=== PATIENT | female | born 1950 | race Caucasian/White ===

== ENCOUNTER 2020-10-02 05:19 | Inpatient (IN) | payer OTHER, SELFPAY ==
[~2020-10-02] VITALS: Ht 162.6 cm; Wt 81.2 kg
[2020-10-02 05:22] VITALS: Ht 162.6 cm; Wt 81.2 kg
--- NOTE | 2020-10-02 05:28 | NUR ---
PT SATTING AT 89% ON RA. PT PLACED ON 2L NC PT SATTING AT@94%.
--- NOTE | 2020-10-02 07:23 | NUR ---
BEDSIDE REPORT RECEIVED.
[2020-10-02 07:33] LABS: BASOPHIL % 0.4 % (0.2-1.3); PLATELET COUNT 215 x10^3mcL (179-408); RED CELL DISTRIBUTION WIDTH 13.4 % (12.3-17.7)
[2020-10-02 08:07] LABS: CALCIUM 8.3 mg/dL (8.5-10.1); CARBON DIOXIDE 24.1 mmol/L (21-32); CHLORIDE SERUM 98 mmol/L (98-107); CREATININE SERUM 0.6 mg/dL (0.6-1.0); GFR1 > 60 mL/min; GLUCOSE SERUM 156 mg/dL (74-106); POTASSIUM SERUM 4.2 mmol/L (3.5-5.1); SODIUM SERUM 133 mmol/L (136-145)
[2020-10-02 08:11] LABS: ALKALINE PHOSPHATASE 69 U/L (46-116); ALT/SGPT 49 U/L (14-59); AST/SGOT 40 U/L (15-37); BILIRUBIN TOTAL 0.85 mg/dL (0.20-1.00); LIPASE 218 IU/L (73-393); TOTAL PROTEIN, SERUM 7.9 g/dL (6.4-8.2); TRIGLYCERIDES 73 mg/dL (<150)
[2020-10-02 08:23] LABS: ALBUMIN 3.1 g/dL (3.4-5.0); CHOLESTEROL 69 mg/dL (<200); CHOLESTEROL/HDL RATIO 2.9; HDL CHOLESTEROL 24 mg/dL (40-60)
--- NOTE | 2020-10-02 08:42 | NUR ---
PATIENT AMBULATED TO THE BATHROOM, O2 SAT ON RETURN TO MONITOR IS 93 PERCENT ROOM AIR, WILL MONITOR O2 SAT WITH NO O2.
--- NOTE | 2020-10-02 09:09 | NUR ---
PATIENT IS COVID POSITIVE, MD IS AWARE.
--- NOTE | 2020-10-02 09:10 | NUR ---
PATIENT MAINTAINED O2 SATURATION BETWEEN 93 TO 94 PERCENT.
--- NOTE | 2020-10-02 09:23 | NUR ---
INFORMED PATIENT OF POSITIVE COVID TEST.
[2020-10-02 10:01] LABS: microscopic required? YES; urine erythrocyte 1+ (NEGATIVE)
--- NOTE | 2020-10-02 12:44 | NUR ---
1 GRAM TYLENOL GIVEN PO PER VO OF DR. ROCA AND GIVEN TREATMENT PROTOCOL ALSO FOR TEMP OF 100.6.
[2020-10-02 13:54] LABS: FREE T4 1.73 ng/dL (0.76-1.46)
[2020-10-02 14:00] LABS: FREE THYROXINE INDEX 4.5 ug/dL (1.4-4.5); T4(THYROXINE) 14.1 ug/dL (4.7-13.3)
--- NOTE | 2020-10-02 14:40 | NUR ---
PLACED ON 2L NC.SPO2 93%. NO ACUTE RESP DISTRESS NOTED.
--- NOTE | 2020-10-02 15:42 | NUR ---
PATIENT IS RESTING WITH EYES CLOSED, STILL TACHYPNEIC AND AT TIMES WITH SINUS TACHYCARDIA. O2 SATURATION IS 94 TO 95 PERCENT ROOM AIR.
--- NOTE | 2020-10-02 16:11 | NUR ---
PATIENT IS UP TO THE BATHROOM WITH NO GAIT ISSUES. PATIENT GETS SOB WITH WALKING BUT ABLE TO MAINTAIN O2 SATURATION IN THE 93 TO 95 RANGE.
--- NOTE | 2020-10-02 18:28 | NUR ---
MEAL TRAY GIVEN, PATIENT ATE A 100 PERCENT.
[2020-10-02 18:35] VITALS: BP 110/66
--- NOTE | 2020-10-02 19:12 | NUR ---
REPORT GIVEN TO SAVANNAH SANDHU
--- NOTE | 2020-10-02 19:17 | NUR ---
RECEIVED REPORT FROM EZEQUIEL NUÑEZ (AGENCY). PT NOTED AWAKE, A/O X4 AND VERBALLY RESPONSIVE. NO ACUTE DISTRESS NOTED. BREATHING EVEN AND UNLABORED. PT DENIES ANY PAIN OR DISCOMFORT AT THIS TIME. BED IN LOWEST POSTION. PT CONTINUES ON 3LPM O2 VIA NC, TOLERATING WELL WITH NO SOB. CONSUELORNOAM REMAINS IN LOWEST POSITION. NO APPARENT CHANGES AT THIS TIME.
[2020-10-02 20:22] LABS: T3 TOTAL 1.45 ng/mL
--- NOTE | 2020-10-02 20:30 | NUR ---
PT RESTING IN POSITION OF COMFORT ON GURNEY, NO ACUTE DISTRESS NOTED. BREATHING EVEN AND UNLABORED. PT DENIES PAIN OR DISCOMFORT. BEDSIDE COMMODE PROVIDED PER PT REQUEST. SAFETY MEASURES IN PLACE. GURNEY REMAINS IN LOWEST POSITION. NO APPARENT CHANGES NOTED AT THIS TIME.
--- NOTE | 2020-10-02 22:47 | NUR ---
PT RESTING IN POSITION OF COMFORT IN GURNEY, NO ACUTE DISTRESS NOTED. BREATHING EVEN AND UNLABORED. SAFETY MEASURES IN PLACE. GURNEY IN LOWEST POSITION. CALL LIGHT WITHIN REACH. NO APPARENT CHANGES AT THIS TIME.
--- NOTE | 2020-10-02 23:50 | NUR ---
PT RESTING IN GURNEY. NO ACUTE DISTRESS NOTED. BREATHING EVEN AND UNLABORED. SAFETY MEASURES IN PLACE. GURNEY IN LOWEST POSITION. NO APPARENT CHANGES NOED AT THIS TIME.
--- NOTE | 2020-10-03 01:00 | NUR ---
PT RESTING IN POSTIION OF COMFORT. NO ACUTE DISTRESS NOTED. BREATHING EVEN AND UNLABORED. SAFETY MEASURES IN PLACE. GURNEY IN LOWEST POSITION. NO APPARENT CHANGES NOTED AT THIS TIME.
--- NOTE | 2020-10-03 02:34 | NUR ---
PT IN [facility], RESTING IN POSITION OF COMFORT. NO ACUTE DISTRESS NOTED. BREATHING EVEN AND UNLABORED. SAFETY MEASURES IN PLACE. NO APPARENT CHANGES NOTED AT THIS TIME.
[2020-10-03] MEDS ORDERED: FORTAMET1000 MG PO (04:38)
[2020-10-03] MEDS ORDERED: BENZONATATE150 MG (04:38)
[2020-10-03] MEDS ORDERED: PROAIR HFA8.5 GM (04:38)
--- NOTE | 2020-10-03 04:49 | NUR ---
REPORT CALLED TO GRAHAM NUÑEZ
--- NOTE | 2020-10-03 05:34 | NUR ---
PT PLACED ON PORTABLE CM AND TRANSFERRED TO TELE FLOOR WITH MYSELF AND [facility] EMT. PT AMBULATED FROM ED GURNEY TO TELE BED WITH STEADY GAIT. NO ACUTE DISTRESS NOTED. BREATHING EVEN AND UNLABORED. GRAHAM RN AT BEDSIDE TO ASSUME CARE
--- NOTE | 2020-10-03 06:19 | NUR ---
REC'D PT FROM ED VIA JEAN ACCOMPANIED BY RN. PT ADM WITH CC OF CONGESTED COUGH AND FATIGUE. DENIED ANY SOB. MONGOLIAN TRANSLATIONS PROVIDED BY [employer] PHONE #[phone]. AAOX4, SPEECH CLEAR, FOLLOWS COMMANDS. TELE 57. DENIES CP, DIZZINESS, OR PALPITATIONS. DENIES RESP DISTRESS. BREATHING EVEN/UNLABORED ON 3L NC, SPO2 94%. ABD SOFT/ROUND/OBESE. DENIES ABD PAIN, TENDERNESS, OR N/V. VOIDING FREELY. GEN WEAKNESS. USUALLY SELF AMBULATORY. IV TO LFA, SITE WNL. CALL LIGHT WITHIN REACH, BED AT LOWEST POSITION. ORIENTED TO DEVICES AND SURROUNDINGS. WILL ENDORSE TO DAY NURSE.
[2020-10-03 06:24] VITALS: BP 123/76
--- NOTE | 2020-10-03 08:07 | NUR ---
PT.RECEIVED IN BED ALERT AND ORIENTED*4, [place] SPEAKING.CARE ASSURED.NO ACUTE RESP. DISTRESS NOTED.O2 VIA N/C @ 3L, SATTING 95%,LUNGS ARE DIMINISHED BILAT.BASES.NSR ON THE MONITOR.ACTIVE BOWELS.SKIN WARM AND DRY TO TOUCH.VOIDS VIA BEDPAN.B/P STABLE.AFEBRILE.NEEDS ARE BEING MET. CALL LIGHT WITHIN REACH.
--- NOTE | 2020-10-03 08:09 | NUR ---
PT NOT GIVEN MED NEB DUE TO ROOM NOT BEING NEGATIVE PRESSURE AND PATIENT BEING POSITIVE FOR COVID-19
[2020-10-03 08:55] VITALS: BP 115/67
[2020-10-03 09:13] LABS: BASOPHIL % 0.3 % (0.2-1.3); PLATELET COUNT 242 x10^3mcL (179-408); RED CELL DISTRIBUTION WIDTH 13.1 % (12.3-17.7)
[2020-10-03 09:51] LABS: ALKALINE PHOSPHATASE 65 U/L (46-116); ALT/SGPT 44 U/L (14-59); AST/SGOT 31 U/L (15-37); BILIRUBIN TOTAL 0.75 mg/dL (0.20-1.00); CALCIUM 8.4 mg/dL (8.5-10.1); CARBON DIOXIDE 25.8 mmol/L (21-32); CHLORIDE SERUM 103 mmol/L (98-107); CREATININE SERUM 0.6 mg/dL (0.6-1.0); GFR1 > 60 mL/min; GLUCOSE SERUM 119 mg/dL (74-106); POTASSIUM SERUM 3.7 mmol/L (3.5-5.1); SODIUM SERUM 139 mmol/L (136-145); TOTAL PROTEIN, SERUM 7.3 g/dL (6.4-8.2)
[2020-10-03 09:55] LABS: ALBUMIN 2.8 g/dL (3.4-5.0)
[2020-10-03 16:54] VITALS: BP 117/72; BP 131/75
--- NOTE | 2020-10-03 17:45 | NUR ---
PT ALERT AND SITTING @ BEDSIDE W/O ANY ACUTE DISTRESS.O2 REMAIN @ 3L VIA N/C.NO ACUTE SOB NOTED.VSS.AFEBRILE.NEEDS ARE BEING MET. CALL LIGHT WITHIN REACH.
--- NOTE | 2020-10-03 19:45 | NUR ---
REC'D CALL BACK FROM DR. FIELDS. NOTIFIED ON 2+ LEUKOCYTES IN URINE. REC'D ORDER TO CONTINUE ROCEPHIN 1 GRAM Q24H IV AND TO OBTAIN URINE CULTURE.
--- NOTE | 2020-10-03 21:00 | NUR ---
REC'D PT FROM DAY NURSE. PT RESTING IN BED. AAOX4, SPEECH CLEAR, FOLLOWS COMMADNS. TELE 57. DENIES CP, DIZZINESS, OR PALPITATONS. DENIES RESP DISTRESS OR SOB. BREATHING EVEN/UNLABORED ON 3L NC, SPO2 93%. C/O DRY COUGH. ABD SOFT/ROUND/OBESE. NO EDEMA NOTED. GEN WEAKNESS. AMBULATORY. SKIN INTACT. IV TO LFA, SITE WNL. CALL LIGHT WITHIN REACH, BED AT LOWEST POSITION. WILL CONTINUE TO MONITOR.
[2020-10-03 21:15] VITALS: BP 116/72
--- NOTE | 2020-10-04 01:08 | NUR ---
PT C/O NO BEING ABLE TO SLEEP. DR. DONNIE THAKUR. BREATHING EVEN/UNLABORED ON 3L NC.
[2020-10-04 05:45] VITALS: BP 125/73
--- NOTE | 2020-10-04 05:53 | NUR ---
PT RESTING IN BED WITH EYES CLOSED. LAYING ON R SIDE. AWAKENS WITH VERBAL STIMULI. NO SIGNS OF DISTRESS OR PAIN NOTED. BREATHING EVEN/UNLABORED ON 3L NC, SPO2 97%. TITRATED DOWN TO 2L NC, SPO2 93%. CALL LIGHT WITHIN REACH, BED AT LOWEST POSITION. WILL ENDORSE TO DAY NURSE.
[2020-10-04 07:35] LABS: BASOPHIL % 0.2 % (0.2-1.3); PLATELET COUNT 262 x10^3mcL (179-408)
--- NOTE | 2020-10-04 07:51 | NUR ---
RECEIVED PATIENT FROM SAVANNAH LOPEZ. PATIENT IN BED AT THIS TIME. STATES SHE HAS A MILD HEADACHE. DENIES SOB. HAS MILD COUGH. ON 2 LPM NASAL CANNULA. SPOKE WITH PATIENT ABOUT PLAN OF CARE TODAY INCLUDING MEDICATIONS AND PATIENT AGREES. PER PM RN, PATIENT HAS HAD HOME O2 EVAL. WILL WAIT FOR [facility] TO ARRIVE AND SEE PATIENT. WILL CONTINUE TO MONITOR, CALL LIGHT IN REACH.
[2020-10-04 08:12] LABS: ALKALINE PHOSPHATASE 60 U/L (46-116); ALT/SGPT 39 U/L (14-59); AST/SGOT 26 U/L (15-37); BILIRUBIN TOTAL 0.57 mg/dL (0.20-1.00); CALCIUM 8.4 mg/dL (8.5-10.1); CHLORIDE SERUM 103 mmol/L (98-107); CREATININE SERUM 0.6 mg/dL (0.6-1.0); GFR1 > 60 mL/min; GLUCOSE SERUM 113 mg/dL (74-106); POTASSIUM SERUM 3.7 mmol/L (3.5-5.1); SODIUM SERUM 138 mmol/L (136-145); TOTAL PROTEIN, SERUM 7.1 g/dL (6.4-8.2)
[2020-10-04 09:05] LABS: ALBUMIN 2.6 g/dL (3.4-5.0)
[2020-10-04 09:17] VITALS: BP 127/82
[2020-10-04] MEDS ORDERED: ELIQUIS5 MG PO (10:55)
[2020-10-04] MEDS ORDERED: DEXAMETHASONE6 MG PO (10:56)
[2020-10-04 12:22] VITALS: BP 128/73
--- NOTE | 2020-10-04 13:46 | NUR ---
DISCHARGE PLACED FOR PATIENT BY DR FAUST. NOTIFIED GEOCHEMIST ROBERTO, INFORMED HER ABOUT HOME O2 EVAL AND THAT ORDER HAS BEEN PLACED. CM STATES SHE WILL ARRANGE O2 TANK AND O2 CONCENTRATOR. PER CM NOTE, CALLED DAUGHTER MAXIMILIANO.
[2020-10-04 17:20] VITALS: BP 112/66
--- NOTE | 2020-10-04 17:58 | NUR ---
PATIENT CONTINUES ON 2 LPM NASAL CANNULA, WATCHING TV. NO COMPLAINTS OF SOB. WILL ENDORSE TO ONCOMING NURSE. CALL LIGHT IN REACH.
[2020-10-04 19:10] VITALS: BP 112/66
--- NOTE | 2020-10-04 21:24 | NUR ---
PT D/C HOME WITH OXYGEN AND WAS PICKED UP BY THE FAMILY IN STABLE CONDITION,INSTRUCTIONS WAS GIVEN TO THE DAUGTHER,HOW TO [employer] MEDS AND TO CALL HIS PRIMARY PHYSICIAN FOR FOLLOW UP,WILL CONTINUE TO MONITOR.
== END 2020-10-04 21:20 | disposition home or self-care (01) | DRG 177 ==
LOC: ED 05:19 → DU 10:16
PROVIDERS: Specialist; ADMIT Hospitalist; ATTEND Hospitalist
DX: U07.1 COVID-19 (principal); J12.89 Other viral pneumonia; J96.01 Acute respiratory failure with hypoxia; I10 Essential (primary) hypertension; E11.65 Type 2 diabetes mellitus with hyperglycemia; R74.01 Elevation of levels of liver transaminase levels; Z90.49 Acquired absence of other specified parts of digestive tract; Z90.710 Acquired absence of both cervix and uterus; Z79.899 Other long term (current) drug therapy
CPT/HCPCS: 36600; 82962; 83880; 84439; 85378; G0378; J0696; J1100; J1650; J7030; J7050; J7060; U0003